=== PATIENT | female | born 1975 | race Caucasian/White ===

== ENCOUNTER → 2023-11-04 | Outpatient (CLI) | payer OTHER ==
--- NOTE | 2023-11-07 19:29 | MM ---
Reason for Exam: Screening (asymptomatic). Last mammogram was performed 13 year(s) and 10 month(s) ago. Patient History: Menarche at age 11. First Full-Term at age 29. Late child-bearing (after 30). Perimenopausal. Paternal grandmother had breast cancer, age 70. Paternal aunt had breast cancer, age 63. Risk Values: Beth 5 year model risk: 1.3%. NCI Lifetime model risk: 12.3%. Prior Study Comparison: No prior studies available for comparison. Tissue Density: The breasts are heterogeneously dense, which may obscure small masses. Findings: Analyzed By CAD. Focal asymmetry central posterior left breast for further evaluation is recommended. No suspicious calcifications or other discrete abnormality is seen. Overall Assessment: Incomplete: need additional imaging evaluation, BI-RAD 0 Management: Special View Mammogram of the left breast. Diagnostic Breast Ultrasound of the left breast. . [facility] will attempt to contact patient to return for supplemental views and ultrasound if indicated. Electronically signed and approved by: Jeff Canales M.D. Radiologist
== END | disposition home or self-care (01) ==
LOC: RADMAMWWP 10:00
PROVIDERS: ATTEND Internal Medicine
DX: Z12.31 Encounter for screening mammogram for malignant neoplasm of breast (principal); Z80.3 Family history of malignant neoplasm of breast
CPT/HCPCS: 77063; 77067

== ENCOUNTER → 2023-11-09 | Outpatient (CLI) | payer OTHER ==
--- NOTE | 2023-11-09 14:38 | MM ---
Reason for Exam: Additional evaluation requested from abnormal screening. Last screening mammogram was performed less than 1 month ago. Patient History: Menarche at age 11. First Full-Term at age 29. Late child-bearing (after 29). Perimenopausal. Paternal grandmother had breast cancer, age 70. Paternal aunt had breast cancer, age 63. Risk Values: Beth 5 year model risk: 1.3%. NCI Lifetime model risk: 12.3%. Prior Study Comparison: 01/08/2010 Bilateral Screening Mammogram, [facility]. 11/04/2023 Bilateral MG 3D screening mammo w/cad, [facility]. Tissue Density: Left: The breasts are heterogeneously dense, which may obscure small masses. Findings: Analyzed By CAD. Central posterior focal asymmetry becomes less defined on spot 3-D CC and does not clearly persist on the 3-D lateral or spot 3-D MLO views. Findings suggest superimposition shadow. Precautionary 6 month follow-up recommended to demonstrate stability. Overall Assessment: Probably benign, BI-RAD 3 Management: Diagnostic Mammogram of the left breast in 6 months. Results were given to the patient verbally at the time of exam. Patient should continue monthly self-breast exams. A clinical breast exam by your physician is recommended on an annual basis. This exam should not preclude additional follow-up of suspicious palpable abnormalities. Note on Beth scores and lifetime risk: 1. A Beth score greater than 3% is considered moderate risk. If this is the case, consider specialist referral to assess eligibility for a risk reducing agent. 2. If overall lifetime risk for the development of breast cancer is 20% or higher, the patient may qualify for future screening with alternating mammogram and breast MRI. Electronically signed and approved by: Jeff Canales M.D. Radiologist
== END | disposition home or self-care (01) ==
LOC: RADMAMWWP 14:06
PROVIDERS: ATTEND Internal Medicine
DX: R92.332 Mammographic heterogeneous density, left breast (principal); Z80.3 Family history of malignant neoplasm of breast
CPT/HCPCS: 77061; 77065

== ENCOUNTER → 2024-05-18 | Outpatient (CLI) | payer OTHER ==
--- NOTE | 2024-05-18 09:59 | MM ---
Reason for Exam: Follow-up at short interval from prior study. Last screening mammogram was performed 6 month(s) ago. Patient History: Menarche at age 11. First Full-Term at age 29. Late child-bearing (after 29). Perimenopausal. Paternal grandmother had breast cancer, age 70. Paternal aunt had breast cancer, age 63. Risk Values: Beth 5 year model risk: 1.3%. NCI Lifetime model risk: 12.3%. Prior Study Comparison: 01/08/2010 Bilateral Screening Mammogram, [facility]. 11/04/2023 Bilateral MG 3D screening mammo w/cad, [facility]. 11/09/2023 Left MG 3D work up w/cad , [facility]. Tissue Density: Left: The breasts are extremely dense, which lowers the sensitivity of mammography. Findings: Analyzed By CAD. Pattern appears stable. No persistent suspicious asymmetric density evident. Previous focal asymmetry is less prominent on the current exam. No suspicious groups of microcalcifications, spiculated or lobular masses, architectural distortion or other secondary signs of malignancy are mammographically apparent. Overall Assessment: Benign, BI-RAD 2 Management: Screening Mammogram of both breasts in 6 months. A negative mammogram report should not preclude additional follow up of suspicious palpable abnormalities. Patient should continue monthly self breast exam. A clinical breast exam by your physician is recommended on an annual basis and results should be correlated with mammographic findings. Note on Beth scores and lifetime risk: 1. A Beth score greater than 3% is considered moderate risk. If this is the case, consider specialist referral to assess eligibility for a risk reducing agent. 2. If overall lifetime risk for the development of breast cancer is 20% or higher, the patient may qualify for future screening with alternating mammogram and breast MRI. [facility], , 05/18/2024 9:56 AM. Electronically signed and approved by: Fausto Carson D.O. Radiologis
== END | disposition home or self-care (01) ==
LOC: RADMAMWWP 09:23
PROVIDERS: ATTEND Internal Medicine
DX: R92.8 Other abnormal and inconclusive findings on diagnostic imaging of breast (principal); Z80.3 Family history of malignant neoplasm of breast
CPT/HCPCS: 77061; 77065